=== PATIENT | male | born 1990 | race Caucasian/White ===

== ENCOUNTER 2020-05-01 15:10 | Emergency (ER) | payer OTHER, SELFPAY ==
[2020-05-01 15:15] VITALS: BP 160/98; PULSE 100; RESP 16; TEMP 36.8; O2SAT 98
--- NOTE | 2020-05-01 15:46 | ED.EXTPRO ---
HPI - Extremity Problem General Chief complaint: Extremity Problem,Nontraumatic Stated complaint: L SHOULDER PAIN XMONTHS Time Seen by Provider: 05/01/20 15:17 Source: patient Mode of arrival: ambulatory Limitations: no limitations History of Present Illness HPI Narrative: Patient is a 29-year-old male who presents to emergency department with left arm pain with some numbness and tingling that is been present now for several months denies injury or trauma has not taken anything for his symptoms presents in no distress Related Data Allergies Allergy/AdvReac Type Severity Reaction Status Date / Time No Known Allergies Allergy Verified 05/01/20 15:28 Review of Systems Review of Systems: All systems reviewed & are unremarkable except as noted in HPI and below PMFSH Family History Family History (Updated 10/17/18 @ 14:23 by DOCTOR UNKNOWN) Mother Diabetes mellitus Hypertension Social History Social History Smoking status: Never smoker Alcohol intake: current Exam Narrative: Exam Narrative: GENERAL: Well-appearing, well-nourished, and in no acute distress. HEAD: Normocephalic, atraumatic. EYES: PERRLA and EOMI. ENT: Nares clear, no rhinorrhea or epistaxis. Mucous membranes moist. NECK: Supple. No adenopathy or masses. CHEST: Clear to auscultation. No respiratory distress. No wheezes rales or rhonchi HEART: Regular rate and rhythm. No murmur heard. Normal peripheral pulses. EXTREMITIES: Normal range of motion. No edema. No deformity or tenderness of the left upper extremity or cervical spine SKIN: Warm, dry, no rash. NEURO: No focal deficits. Alert and oriented x3. Motor and sensory intact and symmetrical in extremities. Neurovascularly intact. Capillary refill less than 2 seconds PSYCH: Normal mood and affect. Course Course Emergency Course: Patient will be referred to primary care for further evaluation Vital Signs Vital signs: Vital Signs Temperature 98.3 F 05/01/20 15:15 Pulse Rate 100 05/01/20 15:15 Respiratory Rate 16 05/01/20 15:15 Blood Pressure 160/98 H 05/01/20 15:15 Pulse Oximetry 98 05/01/20 15:15 Temperature 98.3 F 05/01/20 15:15 Pulse Rate 100 05/01/20 15:15 Respiratory Rate 16 05/01/20 15:15 Blood Pressure 160/98 H 05/01/20 15:15 Pulse Oximetry 98 05/01/20 15:15 MDM - Extremity (Nontraumatic) MDM Narrative Medical decision making narrative: Patients injury or pain is consistent with musculoskeletal etiology. No signs of neurological or vascular compromise on exam. Compartments and tisues are soft without signs of compartment syndrome. Pain is felt appropriate for further evaluation on an outpatient basis. Discharge Plan Discharge Clinical Impression: Arm pain, left Patient Disposition: Home, Self-Care Condition: Stable Instructions: Antibiotic Form, Arm Pain (ED) Additional Instructions: Follow up with your primary care doctor in 5-7 days for re-evaluation. Go to ER for worsening pain, vision changes, nausea/vomiting, fever/chills, weakness, chest pain, shortness of breath, numbness/tingling, slurred speech, difficulty walking, change in mental status etc. or any other concerns. Take any prescribed medications as directed. Prescriptions: New cyclobenzaprine 10 mg tablet 10 mg PO TID PRN (Reason: muscle spasm) Qty: 20 RF: 0 Follow-up/Referrals: Julia Zurita DO [Physician] - PHYSICIAN,DENTAL OFFICE COORDINATOR [Primary Care Provider] -
== END 2020-05-01 16:04 | disposition home or self-care (01) ==
PROVIDERS: Emergency Provider Emergency Medicine
DX: M79.602 Pain in left arm (principal)
CPT/HCPCS: 99283

== ENCOUNTER → 2020-09-10 09:33 | Outpatient (CLI) | payer OTHER, SELFPAY ==
[2020-09-10 19:00] LABS: SARS-CoV-2 RNA PCR Negative
== END ==
PROVIDERS: Visit Provider Nurse Practitioner
DX: Z01.812 Encounter for preprocedural laboratory examination (principal); R51.9 Headache, unspecified
CPT/HCPCS: C9803; U0003; U0005

== ENCOUNTER 2021-10-29 14:41 | Emergency (ER) | payer OTHER, SELFPAY ==
--- NOTE | ~2021-10-29 | CT_ITS ---
EXAMINATION: CT abdomen pelvis wo con DATE: 10/29/2021 16:08 INDICATION: flank pain, hematuria TECHNIQUE: Computed tomography (CT) of the abdomen and pelvis was performed without intravenous contr ast. Automated exposure control and iterative reconstruction technique were employed. The dose-length product was 204.45 mGy-cm. COMPARISON: None FINDINGS: Lower thorax: Unremarkable. Liver: Normal. Biliary/Gallbladder: Gallbladder is collapsed. No bile duct dilation. Spleen: Normal. Pancreas: No mass or duct dilation. Adrenals:No mass. Kidneys: No mass, stone, or hydronephrosis. GI tract: No small or large bowel dilation. Appendix not completely visualized. Mesentery/Peritoneum: No ascites, mass, or free air. Retroperitoneum: No mass. Pelvis: Pelvic organs are within normal limits. Bones/Soft Tissues: Soft tissues and body wall unremarkable. No acute osseous finding. Additional Findings: None. IMPRESSION: No acute abdominopelvic process. Reviewed, dictated and finalized at location K.
[2021-10-29 14:43] VITALS: BP 145/86; PULSE 100; RESP 18; TEMP 37.1; O2SAT 100
[2021-10-29 15:26] LABS: Add Urine Microscopic? YES; Appearance Urine Cloudy (Clear); Bacteria Urine Trace /hpf; Bilirubin Urine Negative (Negative); Blood Urine Negative (Negative); Color Urine Yellow (Yellow); Glucose Urine UA Negative (Negative); Ketones Urine Negative (Negative); Leukocyte Esterase Ur Negative LEU/UL (Negative); Mucus Urine Rare /lpf; Nitrate Urine Negative (Negative); Protein Urine Negative (Negative); Specific Grav Ur 1.011 (1.001-1.035); Urobilinogen Urine Negative mg/dL (<2.0)
[2021-10-29 15:38] LABS: Basophils Absolute Auto 0.1 K/mm3 (0.0-0.1); Basophils Percent Auto 0.9 % (0.2-1.2); Eosinophils Absolute Auto 0.6 K/mm3 (0-0.3); Eosinophils Percent Auto 6.3 % (0-4.4); Hematocrit 41.4 % (42.0-52.0); Hemoglobin 13.5 g/dL (14.0-18.0); Immature Granulocyte Absolute 0.02 K/mm3 (0.00-0.031); Immature Granulocyte Percent A 0.2 % (0-0.5); Lymphocytes Absolute Auto 3.42 K/mm3 (0.9-3.2); Lymphocytes Percent Auto 37.1 % (18.3-44.2); Mean Corpuscular HGB Conc 32.6 g/dl (32-36); Mean Corpuscular Hemoglobin 30.9 pg (26-34); Mean Corpuscular Volume 94.7 fl (80-100); Mean Platelet Volume 10.9 fl (7.4-10.4); Monocytes Absolute Auto 0.7 K/mm3 (0.1-0.6); Monocytes Percent Auto 7.8 % (2.6-8.5); Neutrophils Absolute Auto 4.4 K/mm3 (1.3-6.7); Neutrophils Percent Auto 47.7 % (45.5-73.1); Platelet Count Result 256 k/mm3 (150-375); Red Blood Count 4.37 M/mm3 (4.6-6.20); Red Cell Distribution Width 12.6 % (11.5-14.5); White Blood Count 9.2 K/mm3 (4.5-10.0)
--- NOTE | 2021-10-29 15:53 | ED.MALEGU ---
HPI - Male Genitourinary General Chief complaint: Urogenital-Male <Anuradha Hardy PA-C - Last Filed: 10/29/21 17:07> Stated complaint: back pain/urine odor <Anuradha Hardy PA-C - Last Filed: 10/29/21 17:07> Time Seen by Provider: 10/29/21 14:56 <Anuradha Hardy PA-C - Last Filed: 10/29/21 17:07> Source: patient <Anuradha Hardy PA-C - Last Filed: 10/29/21 17:07> Mode of arrival: ambulatory <CLARIBEL Odonnell Last Filed: 10/29/21 17:07> Limitations: no limitations <Anuradha Hardy PA-C - Last Filed: 10/29/21 17:07> History of Present Illness HPI Narrative: This is a 31-year-old male that presents to the emergency department for left flank pain present over the last couple of weeks. No recent injury or trauma. The pain is sharp and intermittent in nature. Reports he also noted that his urine looked darker than usual. Denies fever, vomiting, dysuria, or hematuria. <Anuradha Hardy PA-C - Last Filed: 10/29/21 17:07> Related Data Allergies/Adverse reactions: Allergies Allergy/AdvReac Type Severity Reaction Status Date / Time No Known Allergies Allergy Verified 10/29/21 14:53 <Anuradha Hardy PA-C - Last Filed: 10/29/21 17:07> Review of Systems Review of Systems: CONSTITUTIONAL: Denies fever GASTROINTESTINAL: Denies abdominal pain, nausea, vomiting, or diarrhea. GENITOURINARY: Denies dysuria or hematuria. SKIN: Denies rash MUSCULOSKELETAL: Reports back pain, joint pain, and myalgia. <Anuradha Hardy PA-C - Last Filed: 10/29/21 17:07> All systems reviewed & are unremarkable except as noted in HPI and below <Anuradha Hardy PA-C - Last Filed: 10/29/21 17:07> [facility] Past Medical History Medical History: Medical History Asthma Colitis Depression GERD (gastroesophageal reflux disease) <Anuradha Hardy PA-C - Last Filed: 10/29/21 17:07> Family History Family History: Family History Mother Diabetes mellitus Hypertension <Anuradha Hardy PA-C - Last Filed: 10/29/21 17:07> Social History Social History: Social History Smoking packs per day: 0.25 Smoking cigarettes per day: 5.0 Years smoked: 13 Smoking pack-years: 3.25 Smoking status: Current every day smoker Alcohol intake: current <Anuradha Hardy PA-C - Last Filed: 10/29/21 17:07> Exam Narrative: GENERAL: Well-appearing, well-nourished, and in no acute distress. HEAD: Normocephalic, atraumatic. EYES: EOMI. CHEST: Clear to auscultation. No respiratory distress. No wheezes rales or rhonchi HEART: Regular rate and rhythm. No murmur heard. Normal peripheral pulses. ABDOMEN: Soft, nontender, nondistended, normal active bowel sounds. No CVA tenderness EXTREMITIES: Normal range of motion. No edema. Normal gait SKIN: Warm, dry, no rash. NEURO: No focal deficits. Alert and oriented x3. PSYCH: Normal mood and affect <Anuradha Hardy PA-C - Last Filed: 10/29/21 17:07> Course CARRY IN WORKER/PA Physician Supervision For this patient encounter, I reviewed the CARRY IN WORKER or PA documentation, treatment plan, and medical decision making <Oswaldo Lopez MD - Last Filed: 10/29/21 18:32> Vital Signs Vital signs: Vital Signs Temperature 98.8 F 10/29/21 14:43 Pulse Rate 100 10/29/21 14:43 Respiratory Rate 18 10/29/21 14:43 Blood Pressure 145/86 H 10/29/21 14:43 Pulse Oximetry 100 10/29/21 14:43 Temperature 98.8 F 10/29/21 14:43 Pulse Rate 100 10/29/21 14:43 Respiratory Rate 18 10/29/21 14:43 Blood Pressure 145/86 H 10/29/21 14:43 Pulse Oximetry 100 10/29/21 14:43 <Anuradha Hardy PA-C - Last Filed: 10/29/21 17:07> Vital Signs Temperature 98.8 F 10/29/21 14:43 Pulse Rate 100 10/29/21 14:43 Respiratory Rate 18 10/29/21 14:43 Blood Pressure 145/86 H
[2021-10-29 16:35] LABS: Anion Gap 5 mmol/L (8-16); Blood Urea Nitrogen 10 mg/dL (9-20); Calcium 8.9 mg/dL (8.4-10.2); Carbon Dioxide 27 mmol/L (22-30); Chloride 106 mmol/L (98-107); Estimated CRCL calculation 102 ml/min; Estimated Glomerular Filt Rate > 60; Glucose 96 mg/dL (65-110); Potassium 4.1 mmol/L (3.4-5.0); Sodium 138 mmol/L (137-145)
== END 2021-10-29 17:22 | disposition home or self-care (01) ==
PROVIDERS: Physician Assistant; Emergency Provider Emergency Medicine; PCP Internal Medicine
DX: M54.50 Low back pain, unspecified (principal); J45.909 Unspecified asthma, uncomplicated; K21.9 Gastro-esophageal reflux disease without esophagitis
CPT/HCPCS: 36415; 74176; 80048; 81001; 85025; 99284

== ENCOUNTER 2022-01-30 11:01 | Emergency (ER) | payer OTHER, SELFPAY ==
--- NOTE | ~2022-01-30 | XR_ITS ---
EXAMINATION: XR ankle RT 2V DATE: 01/30/2022 11:25 INDICATION: Right ankle pain and swelling. TECHNIQUE: 2 views of right ankle were obtained. COMPARISON: None. FINDINGS: Bone alignment is normal. No fracture. Joint spaces are normal. There is an enthesophyte at medial malleolus. IMPRESSION: 1. No etiology for the patient's symptoms. Reviewed, dictated and finalized at location A.
--- NOTE | ~2022-01-30 | XR_ITS ---
EXAMINATION: XR foot RT min 3V DATE: 01/30/2022 12:40 INDICATION: Posttraumatic lateral right foot pain TECHNIQUE: Dorsoplantar, two oblique and lateral views of the right foot were obtained. COMPARISON: None. FINDINGS: Alignment is normal. No fracture. Joint spaces are normal. Soft tissues are unremarkable. IMPRESSION: 1. . Negative right foot radiographs. Reviewed, dictated and finalized at location A.
[2022-01-30 11:04] VITALS: BP 122/90; PULSE 83; RESP 20; TEMP 36.8; O2SAT 100
--- NOTE | 2022-01-30 13:01 | ED.LOWEXIN ---
HPI - Extremity Injury (Lower) General Chief Complaint: Extremity Injury, Lower Stated Complaint: right ankle injury Time Seen by Provider: 01/30/22 12:09 Source: patient Mode of arrival: ambulatory Limitations: no limitations History of Present Illness HPI Narrative: 31 years old white male presents with pain at the back of the right ankle and the foot started 4 days ago. Patient was using landmower and got hit by a piece of stone at the back of the right ankle, developed pain 1 day later. Worse when he tried to go uphill. He denies other injuries. The pain involving the back of the right heel and foot Patient was having a tennis shoes on at that time Related Data Allergies Allergy/AdvReac Type Severity Reaction Status Date / Time No Known Allergies Allergy Verified 01/30/22 12:03 Review of Systems Review of Systems: All systems reviewed & are unremarkable except as noted in HPI and below PMFSH Past Medical History Medical History Asthma Colitis Depression GERD (gastroesophageal reflux disease) Family History Family History Mother Diabetes mellitus Hypertension Social History Social History Smoking packs per day: 0.25 Smoking cigarettes per day: 5.0 Years smoked: 13 Smoking pack-years: 3.25 Smoking status: Current every day smoker Alcohol intake: current Exam Narrative: General appearance: Well-developed, well-nourished Skin: Normal color Chest and respiratory: Airway patent, no respiratory distress, no accessory muscle use Heart: Regular rate/rhythm Vascular: Normal peripheral pulses, normal capillary refill. Musculoskeletal: Normal range of motion, nontender back right ankle, right foot showed no swelling, no bruises, no localized tenderness, good range of motion. Neurologic: Alert and oriented ?3, ROOM INSPECTOR is normal as tested, no gross motor deficit Course Vital Signs Vital signs: Vital Signs Temperature 36.8 C 01/30/22 11:04 Pulse Rate 83 01/30/22 11:04 Respiratory Rate 20 01/30/22 11:04 Blood Pressure 122/90 01/30/22 11:04 Pulse Oximetry 100 01/30/22 11:04 Oxygen Delivery Room Air 01/30/22 11:04 Temperature 36.8 C 01/30/22 11:04 Pulse Rate 83 01/30/22 11:04 Respiratory Rate 20 01/30/22 11:04 Blood Pressure 122/90 01/30/22 11:04 Pulse Oximetry 100 01/30/22 11:04 Oxygen Delivery Room Air 01/30/22 11:04 MDM - Extremity Injury (Lower) Differential Diagnosis Differential diagnosis: Likely ankle sprain and strain and ankle fracture Imaging Data Radiologist's impression: Impressions Ankle X-Ray 01/30/22 11:30 IMPRESSION: 1. No etiology for the patient's symptoms. Foot X-Ray 01/30/22 12:44 IMPRESSION: 1. . Negative right foot radiographs. Critical Care Time Critical Care Time Critical Care Time: No Discharge Plan Discharge Clinical Impression: Acute pain of right foot Patient Disposition: Home, Self-Care Condition: Stable Instructions: Antibiotic Form, Foot Contusion (ED) Additional Instructions: Return if symptoms are worsening , call dr dailey for appointment, take Tylenol as as needed for aches and pain, continue home medications., Crutches, no weightbearing on the right foot until you see the printing bindery assistant Prescriptions: No Action cyclobenzaprine 10 mg tablet 10 mg PO TID PRN (Reason: muscle spasm) Qty: 20 0RF cyclobenzaprine 10 mg tablet 10 mg PO TID PRN (Reason: muscle spasm) Qty: 14 0RF Follow-up/Referrals: David Sow JR M
== END 2022-01-30 13:50 | disposition home or self-care (01) ==
PROVIDERS: Emergency Provider Emergency Medicine; PCP Internal Medicine
DX: M79.671 Pain in right foot (principal); J45.909 Unspecified asthma, uncomplicated; K21.9 Gastro-esophageal reflux disease without esophagitis; F17.210 Nicotine dependence, cigarettes, uncomplicated
CPT/HCPCS: 73600; 73630; 99283

== ENCOUNTER 2022-03-08 10:59 | Emergency (ER) | payer OTHER, SELFPAY ==
[2022-03-08 11:04] VITALS: BP 138/89; PULSE 90; RESP 16; TEMP 37.7; O2SAT 100
[2022-03-08 11:57] LABS: Influenza A QL RT-PCR Negative (Negative); Influenza B QL RT-PCR Negative (Negative); SARS-CoV-2 RNA PCR Positive
--- NOTE | 2022-03-08 12:27 | ED.GENADULT ---
HPI - General Adult General Chief complaint: Upper Respiratory Infection Stated complaint: wants covid test Time Seen by Provider: 03/08/22 11:34 History of Present Illness HPI narrative: 31-year-old male presenting the emergency department for evaluation of body aches, headaches, cough and cold symptoms. Patient was recently diagnosed with a dental infection and had been started on antibiotics. Patient states he completed the amoxicillin yesterday. Patient states he is still having some purulent discharge from his gums. Patient states he has not yet had COVID. Related Data Allergies Allergy/AdvReac Type Severity Reaction Status Date / Time No Known Allergies Allergy Verified 01/30/22 12:03 Review of Systems Review of Systems: CONSTITUTIONAL: See HPI EYES: Denies visual changes, redness, or discharge. ENT: Denies rhinorrhea, congestion, sore throat, or otalgia. CARDIOVASCULAR: Denies chest pain, palpitations, or edema. RESPIRATORY: Cough and intermittent shortness of breath GASTROINTESTINAL: Denies abdominal pain, nausea, vomiting, or diarrhea. GENITOURINARY: Denies dysuria or hematuria. SKIN: Denies rash or itching. MUSCULOSKELETAL: Denies back pain, joint pain, or myalgia. NEUROLOGIC: Denies headache, numbness, or weakness. REPLACED BY [facility] Past Medical History Medical History Asthma Colitis Depression GERD (gastroesophageal reflux disease) Family History Family History Mother Diabetes mellitus Hypertension Social History Social History Smoking packs per day: 0.25 Smoking cigarettes per day: 5.0 Years smoked: 13 Smoking pack-years: 3.25 Smoking status: Current every day smoker Alcohol intake: current Exam Narrative: APPEARANCE: Well appearing, no pain, no distress, well-nourished. HEAD: normocephalic, atraumatic. EYES: PERRLA/EOMI, conjunctivae clear. Mouth: No abscess amenable to drainage NOSE: Normal no drainage EARS:TMS clear with good light reflex. THROAT: Pharynx clear, no exudate. NECK: Supple. No adenopathy, no masses. RESPIRATORY: Airway patent, respirations nonlabored. Clear to auscultation bilaterally, no rales, rhonchi, wheezing. CARDIOVASCULAR: Regular rate and rhythm without murmurs rubs or gallops. ABDOMINAL: Soft, nontender, nondistended, normal bowel sounds MUSCULOSKELETAL: Moves all extremities. Strength/ROM intact, No edema, No calf tenderness. NEURO: Alert. Cranial nerves II through XII intact. Grossly intact SKIN: Warm, dry. Normal Color Course Course Emergency Course: Patient did test positive for COVID. Patient was also treated with additional antibiotics for his reported dental abscess. Patient was encouraged to have close follow-up with his primary care physician. All questions and concerns were addressed. Patient was also encouraged to have follow-up with a dentist. Vital Signs Vital signs: Vital Signs Temperature 99.9 F H 03/08/22 11:04 Pulse Rate 90 03/08/22 11:04 Respiratory Rate 16 03/08/22 11:04 Blood Pressure 138/89 03/08/22 11:04 Pulse Oximetry 100 03/08/22 11:04 Oxygen Delivery Room Air 03/08/22 11:04 Temperature 100.4 F H 03/08/22 12:39 Pulse Rate 92 03/08/22 12:39 Respiratory Rate 20 03/08/22 12:39 Blood Pressure 126/85 03/08/22 12:39 Pulse Oximetry 99 03/08/22 12:39 Oxygen Delivery Room Air 03/08/22 11:04 Medical Decision Making Vital Signs Vital Signs: Vital Signs Temperature 99.9 F H 03/08/22 11:04 Pulse Rate 90 03/08/22 11:04 Respiratory Rate 16 03/08/22 11:04 Blood Pressure 138/89 03/08/22 11:04 Pulse Oximetry 100 03/08/22 11:04 Oxygen Delivery Room Air 03/08/22 11:04 Temperature 100.4 F H 03/08/22 12:39 Pulse Rate 92 03/08/22 12:39 Respiratory Rate 20 03/08/22 12:39 Blood Pressure 126/85 03/08/22 12:39 Pulse
[2022-03-08 12:39] VITALS: BP 126/85; PULSE 92; RESP 20; TEMP 38; O2SAT 99
== END 2022-03-08 12:39 | disposition home or self-care (01) ==
PROVIDERS: Emergency Provider Emergency Medicine; PCP Internal Medicine
DX: U07.1 COVID-19 (principal); K08.89 Other specified disorders of teeth and supporting structures; K21.9 Gastro-esophageal reflux disease without esophagitis; F17.210 Nicotine dependence, cigarettes, uncomplicated
CPT/HCPCS: 87502; 99283; C9803; U0003; U0005

== ENCOUNTER 2022-11-02 15:03 | Outpatient (CLI) | payer OTHER, SELFPAY ==
--- NOTE | ~2022-11-02 | XR_ITS ---
EXAM: XR shoulder RT min 2V DATE: 11/02/2022 15:24 HISTORY: M25.511 - Pain in right shoulder POST FALL X 2-3 MONTHS AGO . COMPARISON: None available. FINDINGS: Normal mineralization. No fracture or dislocation. No lytic or blastic lesion. Joint space s are maintained. No erosion or periosteal change. Soft tissues within normal limits. IMPRESSION: Normal right shoulder radiograph findings. Reviewed, dictated and finalized at location K.
== END 2022-11-02 15:04 | disposition home or self-care (01) ==
LOC: ANHIMG 15:05
PROVIDERS: PCP Internal Medicine; Visit Provider Nurse Practitioner
DX: M25.511 Pain in right shoulder (principal)
CPT/HCPCS: 73030

== ENCOUNTER 2022-12-01 10:59 | Emergency (ER) | payer OTHER, SELFPAY ==
--- NOTE | ~2022-12-01 | XR_ITS ---
EXAMINATION: XR ankle LT min 3V DATE: 12/01/2022 11:33 INDICATION: Left ankle pain, possible foreign body TECHNIQUE: Anteroposterior, lateral, mortise, and additional oblique view of the ankle were obtained. COMPARISON: None. FINDINGS: Bone alignment is normal. There is no fracture. There is mild medial soft tissue swelling o f ankle. No radiopaque foreign body is identified. IMPRESSION: 1. No acute osseous abnormality or radiopaque foreign body identified. Reviewed, dictated and finalized at location B.
[2022-12-01 11:07] VITALS: BP 127/93; PULSE 85; RESP 20; TEMP 36.7; O2SAT 100
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
[2022-12-01] MEDS: HYDROcodone/acetaminophen (*CRX) 5-325 MG TABLET 1 TAB PO (12:36)
--- NOTE | 2022-12-01 13:32 | PC.NURSE ---
Pt ambulated without pain so he did not feel he needed crutches and states I have XIMENA wraps at home if I want one.
[2022-12-01 13:33] VITALS: BP 132/74; PULSE 68; RESP 16; TEMP 36.8; O2SAT 100
== END 2022-12-01 13:37 | disposition home or self-care (01) ==
PROVIDERS: Emergency Provider Nurse Practitioner Family; PCP Internal Medicine
DX: S90.02XA Contusion of left ankle, initial encounter (principal); S96.912A Strain of unspecified muscle and tendon at ankle and foot level, left foot, initial encounter; J45.909 Unspecified asthma, uncomplicated; K21.9 Gastro-esophageal reflux disease without esophagitis; W20.8XXA Other cause of strike by thrown, projected or falling object, initial encounter
CPT/HCPCS: 73610; 99283; A9270

== ENCOUNTER 2023-07-31 13:23 | Emergency (ER) | payer OTHER, SELFPAY ==
--- NOTE | ~2023-07-31 | XR_ITS ---
XR hand RT min 3V DATE: 07/31/2023 13:58 INDICATION: Pain. Injury last year. TECHNIQUE: 3 views COMPARISON: None FINDINGS: No recent fracture or dislocation, periosteal reaction or bone destruction, erosive change or chondrocalcinosis. Joint spaces are preserved. IMPRESSION: No significant abnormality Reviewed, dictated and finalized at location L. COLLECTOR IMPRESSION: No significant abnormality
[2023-07-31 13:40] VITALS: BP 127/91; PULSE 99; RESP 16; TEMP 37.6; O2SAT 100
--- NOTE | 2023-07-31 14:47 | ED.UPPEXIN ---
HPI - Extremity Injury (Upper) General Chief Complaint: Extremity Injury, Upper Stated Complaint: rt hand injury Time Seen by Provider: 07/31/23 14:47 Source: patient Mode of arrival: ambulatory Limitations: no limitations History of Present Illness HPI narrative: Patient is a 33 y/o male who presents to the ED with c/o right hand pain. Patient reports he fractured his R hand 4-5 months ago, unknown metacarpal, in which he fell and hit his hand against a grave stone [place] States he was seen at [facility] afterwards and was not given any follow-up for Orthopedics. States he does not feel the fracture has healed properly. Reports pain with use of hand, intermittent tingling. Denies any new injury. Denies numbness. Related Data Home Medications Medication Instructions Recorded Confirmed No Home Medications 11/02/22 11/02/22 Allergies Allergy/AdvReac Type Severity Reaction Status Date / Time No Known Allergies Allergy Verified 12/01/22 11:13 Review of Systems Review of Systems: CONSTITUTIONAL: Denies fever, chills, or sweats. MUSCULOSKELETAL: See HPI. NEUROLOGIC: See HPI. All systems reviewed & are unremarkable except as noted in HPI and below PMFSH Past Medical History Medical History Asthma Colitis Depression GERD (gastroesophageal reflux disease) Family History Family History Mother Diabetes mellitus Hypertension Social History Social History Smoking packs per day: 0.50 Smoking cigarettes per day: 10.0 Years smoked: 13 Smoking pack-years: 6.50 Smoking status: Current every day smoker Alcohol intake: current Exam Narrative: GENERAL: Well appearing, well-nourished, non-toxic, in no acute distress. HEAD: Normocephalic, atraumatic. RESPIRATORY: Airway patent, respirations nonlabored. CARDIOVASCULAR: Regular rate and rhythm without murmurs, rubs, or gallops. Radial pulses 2+ MUSCULOSKELETAL: Moves all extremities. No gross deformities. Full ROM of R hand/fingers, mild TTP over mid dorsal hand over area of 3rd/4th metacarpal. No crepitus. No warmth/erythema. Sensation intact. Good capillary refill of fingers. SKIN: Warm, dry, normal color. NEURO: A&O X3. Speech clear. Cranial nerves II-XII grossly intact. No ataxic movements. PSYCHIATRIC: Appropriate mood and affect. Normal interaction. Course Vital Signs Vital signs: Vital Signs Temperature 99.7 F H 07/31/23 13:40 Pulse Rate 99 07/31/23 13:40 Respiratory Rate 16 07/31/23 13:40 Blood Pressure 127/91 H 07/31/23 13:40 Pulse Oximetry 100 07/31/23 13:40 Oxygen Delivery Room Air 07/31/23 13:40 Temperature 99.7 F H 07/31/23 13:40 Pulse Rate 99 07/31/23 13:40 Respiratory Rate 16 07/31/23 13:40 Blood Pressure 127/91 H 07/31/23 13:40 Pulse Oximetry 100 07/31/23 13:40 Oxygen Delivery Room Air 07/31/23 13:40 MDM - Extremity Injury (Upper) MDM Narrative Medical decision making narrative: Patient's injury is consistent with musculoskeletal etiology. No signs of neurologic or vascular compromise on physical examination. Compartments are soft without signs of compartment syndrome. XR without evidence for new fracture, does show old fracture deformities, no other acute abnormalities. Pain is consistent with exam. Patient is felt to be stable for discharge home and further outpatient management and treatment. Advised patient will need to follow up with Hand/ orthopedics for further evaluation of previous fx, and to determine need for surgery. Recommended that patient continue Tylenol as needed for pain. He is unable to take ibuprofen d/t hx of UC/bleeding. Offered to provide Gumaro bandage for hand, however patient declined, states he has one at home. Patient gi
== END 2023-07-31 15:05 | disposition home or self-care (01) ==
LOC: ANHED 15:00
PROVIDERS: Emergency Provider Physician Assistant
DX: M79.641 Pain in right hand (principal); F17.210 Nicotine dependence, cigarettes, uncomplicated; J45.909 Unspecified asthma, uncomplicated; F32.A Depression, unspecified; K21.9 Gastro-esophageal reflux disease without esophagitis
CPT/HCPCS: 73130; 99283